=== PATIENT | female | born 1985 | race Caucasian/White ===

== ENCOUNTER 2017-04-28 23:49 | Emergency (ER) | payer OTHER ==
[~2017-04-28] VITALS: Ht 172.7 cm; Wt 72.6 kg
[2017-04-29] MEDS ORDERED: ONDANSETRON 4 MG/2 ML VIAL IM ONE (00:30)
[2017-04-29] MEDS ORDERED: MORPHINE SULFATE 4 MG/1 ML DISP.SYRIN IM ONE (00:30)
[2017-04-29] MEDS ORDERED: ONDANSETRON 4 MG/2 ML VIAL ONE (00:45)
[2017-04-29] MEDS ORDERED: MORPHINE SULFATE 4 MG/1 ML DISP.SYRIN ONE (00:45)
--- NOTE | 2017-04-29 02:05 | NUR ---
Patient discharged to home in stable conditon. Written and verbal after care instructions given. Patient verbalizes understanding of instructions.
== END 2017-04-29 02:07 | disposition home or self-care (01) ==
LOC: ER 23:52
DX: M25.562 Pain in left knee (principal); X58.XXXA Exposure to other specified factors, initial encounter; Y93.67 Activity, basketball; Y99.8 Other external cause status; Y92.89 Other specified places as the place of occurrence of the external cause
CPT/HCPCS: 73560; A4663; J2270; J2405